=== PATIENT | male | born 1985 | race Caucasian/White ===

== ENCOUNTER 2019-03-16 12:48 | Emergency (ER) | payer MEDICAID ==
[~2019-03-16] VITALS: Ht 175.3 cm; Wt 67.1 kg
[2019-03-16 12:58] VITALS: BP 145/96; Ht 175.3 cm; Wt 67.1 kg
== END 2019-03-16 14:03 | disposition home or self-care (01) ==
LOC: ED 12:48
DX: E11.9 Type 2 diabetes mellitus without complications (principal); Z76.0 Encounter for issue of repeat prescription